=== PATIENT | male | born 1970 | race Caucasian/White ===

== ENCOUNTER 2022-01-18 15:41 | Inpatient (IN) | payer BC ==
[2022-01-18 17:15] VITALS: BMI 21.1
[2022-01-18] MEDS ORDERED: NALOXONE HCL (KLOXXADO) 8 MG SPRAY NS PRN (20:51)
[2022-01-18] MEDS ORDERED: BENZOCAINE/MENTHOL (CHLORASEPTIC ) LOZENGE MM PRN (20:51)
[2022-01-18] MEDS ORDERED: DICYCLOMINE HCL 10 MG CAPSULE PO PRN (20:51)
[2022-01-18] MEDS ORDERED: LOPERAMIDE HCL 2 MG CAPSULE PO PRN (20:51)
[2022-01-18] MEDS ORDERED: hydrOXYzine PAMOATE 25 MG CAPSULE (FP) PO PRN (20:51)
[2022-01-18] MEDS ORDERED: NICOTINE 10 MG CARTRIDGE (INHALER) IH PRN (20:51)
[2022-01-18] MEDS ORDERED: MAGNESIUM HYDROX 2400MG/30ML ORAL SUSPENSION 30 ML CUP PO PRN (20:51)
[2022-01-18] MEDS ORDERED: MAGNESIUM CITRATE 300 ML BOTTLE PO PRN (20:51)
[2022-01-18] MEDS ORDERED: ACETAMINOPHEN 325 MG TABLET (FP) PO PRN ×2 (20:51)
[2022-01-18] MEDS ORDERED: MAG HYDROX/AL HYDROX/SIMETH 30 ML UNIT-DOSE CUP PO PRN (20:51)
[2022-01-18] MEDS ORDERED: METHOCARBAMOL 500 MG TABLET PO PRN (20:51)
[2022-01-18] MEDS ORDERED: ONDANSETRON *ODT* 4 MG TABLET SL PRN (20:51)
[2022-01-18] MEDS ORDERED: THIAMINE HCL 100 MG TABLET (FP) PO SCH (22:00)
[2022-01-18] MEDS ORDERED: MELATONIN 5 MG TABLETS PO SCH (22:00)
[2022-01-19] MEDS ORDERED: PRENATAL VITAMINS W/ FOLIC ACID TABLET (FP) PO SCH (10:00)
[2022-01-19] MEDS ORDERED: methaDONE HCL 40 MG DISPERSABLE TABLET PO ONE (10:15)
[2022-01-19 11:34] LABS: HEMATOCRIT 35.7 % (35.4-49); HEMOGLOBIN 11.5 GM/dL (11.7-16.9); MCH 26.7 pg (25.7-33.7); MCHC 32.1 g/dl (32.0-35.9); MEAN CELL VOLUME 82.9 fl (80-96); MEAN PLT VOLUME 8.8 fl (7.5-11.1); PLATELET COUNT 233 10^3/uL (134-434); RBC 4.31 M/mm3 (4.00-5.60); RDW 13.9 % (11.9-15.9); WHITE BLOOD COUNT 6.6 K/mm3 (4.0-10.0)
[2022-01-19 11:43] LABS: BLOOD UREA NITROGEN 14.7 mg/dL (7-18); CALCIUM 8.7 mg/dL (8.5-10.1)
[2022-01-19 11:46] LABS: CREATININE 1.1 mg/dL (0.55-1.3)
[2022-01-19 11:48] LABS: BILIRUBIN,TOTAL 0.3 mg/dL (0.2-1); TOT PROT 5.9 g/dl (6.4-8.2)
[2022-01-19 13:43] VITALS: BP 111/62; PULSE 58; RESP 17; TEMP 97.6
== END 2022-01-19 15:44 | disposition home or self-care (01) | DRG 773 ==
LOC: YASAS 15:41 → Y6N 21:02
PROVIDERS: ADMIT Allergy & Immunology; ATTEND Surgery
PROC: HZ2ZZZZ Detoxification Services for Substance Abuse Treatment (ICD-10-PCS; principal; 2022-01-18)
DX: F10.230 Alcohol dependence with withdrawal, uncomplicated (principal); F11.20 Opioid dependence, uncomplicated; F14.20 Cocaine dependence, uncomplicated; F12.20 Cannabis dependence, uncomplicated; F17.210 Nicotine dependence, cigarettes, uncomplicated; F19.282 Other psychoactive substance dependence with psychoactive substance-induced sleep disorder; F19.280 Other psychoactive substance dependence with psychoactive substance-induced anxiety disorder; F19.24 Other psychoactive substance dependence with psychoactive substance-induced mood disorder; F20.9 Schizophrenia, unspecified; F43.10 Post-traumatic stress disorder, unspecified; G62.9 Polyneuropathy, unspecified; J44.9 Chronic obstructive pulmonary disease, unspecified; Z99.89 Dependence on other enabling machines and devices; Z88.0 Allergy status to penicillin
CPT/HCPCS: 36415; 80053; 85027; 86780; C9803-CS; U0003; U0005

== ENCOUNTER 2023-08-20 13:37 | Inpatient (IN) | payer BC ==
[2023-08-20 14:09] VITALS: BMI 21.2
[2023-08-20] MEDS ORDERED: DOCUSATE SODIUM 100 MG CAPSULE (FP) PO PRN (15:44)
[2023-08-20] MEDS ORDERED: NALOXONE (NARCAN) HCL 4 MG/0.1 ML SPRAY NS PRN (15:44)
[2023-08-20] MEDS ORDERED: NALOXONE HCL 0.4 MG/ML VIAL IM PRN (15:44)
[2023-08-20] MEDS ORDERED: NICOTINE POLACRILEX 2 MG LOZENGE BC PRN (15:44)
[2023-08-20] MEDS ORDERED: BENZONATATE 200 MG CAPSULE PO PRN (15:44)
[2023-08-20] MEDS ORDERED: LOPERAMIDE HCL 2 MG CAPSULE PO PRN (15:44)
[2023-08-20] MEDS ORDERED: guaiFENesin 600 MG TABLET.ER (FP) PO PRN (15:44)
[2023-08-20] MEDS ORDERED: POLYETHYLENE GLYCOL (HEALTHYLAX) 3350 17 GM PACKET PO PRN (15:44)
[2023-08-20] MEDS ORDERED: TUBERCULIN PPD 5 TU/0.1ML VIAL ID ONE (19:01)
[2023-08-20] MEDS: TUBERCULIN PPD 5 TU/0.1ML SYRINGE (IN PATIENT USE ONLY) ID ONE (19:02)
[2023-08-20] MEDS: MELATONIN 5 MG TABLETS PO SCH (21:38)
[2023-08-20] MEDS: THIAMINE 100 MG TABLET PO SCH (21:38)
[2023-08-21] MEDS ORDERED: methaDONE HCL 10 MG TABLET PO SCH (09:30)
[2023-08-21] MEDS: methaDONE 40 MG, methaDONE 10 MG PO ONE (10:02)
[2023-08-21] MEDS: PRENATAL VITAMINS W/ FOLIC ACID TABLET (FP) PO SCH (10:02)
[2023-08-21] MEDS: BENZOCAINE/MENTHOL (CHLORASEPTIC ) LOZENGE MM PRN (10:04)
[2023-08-21 10:28] LABS: HEMOGLOBIN 12.6 GM/dL (11.7-16.9); MCH 26.6 pg (25.7-33.7); MCHC 33.3 g/dl (32.0-35.9); MEAN PLT VOLUME 9.2 fl (7.5-11.1); PLATELET COUNT 206 10^3/uL (134-434); RBC 4.75 M/mm3 (4.00-5.60); WHITE BLOOD COUNT 10.5 K/mm3 (4.0-10.0)
[2023-08-21 10:32] LABS: POTASSIUM 4.1 mmol/L (3.5-5.1)
[2023-08-21 10:42] LABS: ALBUMIN 3.2 g/dl (3.4-5.0); CALCIUM 8.5 mg/dL (8.5-10.1)
[2023-08-21 10:43] LABS: BLOOD UREA NITROGEN 15.1 mg/dL (7-18); CREATININE 1.1 mg/dL (0.55-1.3)
[2023-08-21 10:45] LABS: BILIRUBIN,TOTAL 0.4 mg/dL (0.2-1); TOT PROT 6.4 g/dl (6.4-8.2)
[2023-08-21 11:59] LABS: SYPHILIS W/ RPR CONF NON-REACTIVE (NONREACTIVE)
[2023-08-21] MEDS: PERMETHRIN (NIX CREAM SCALP RINSE) 59 ML 1% BOTTLE TP ONE (13:43)
[2023-08-21] MEDS: PERMETHRIN 5% TOPICAL CREAM 60 GM TUBE TP ONE (15:57)
[2023-08-21 18:16] LABS: PH,URINE 5.5 (5.0-8.0); URINE APPEARANCE CLEAR; URINE BILIRUBIN NEGATIVE (NEGATIVE); URINE COLOR YELLOW; URINE GLUCOSE (UA) NEGATIVE (NEGATIVE); URINE KETONE NEGATIVE (NEGATIVE); URINE LEUK ESTERASE NEGATIVE (NEGATIVE); URINE NITRITE NEGATIVE (NEGATIVE); URINE PROTEIN NEGATIVE (NEGATIVE); URINE UROBILINOGEN 0.2 mg/dL (0.2-1.0)
[2023-08-21] MEDS: hydrOXYzine PAMOATE 25 MG CAPSULE (FP) PO PRN (21:08)
[2023-08-22] MEDS: methaDONE 40 MG, methaDONE 10 MG PO SCH (06:06)
[2023-08-22] MEDS: ACETAMINOPHEN 325 MG TABLET (FP) PO PRN (12:01)
[2023-08-23] MEDS: traZODone HCL 50 MG TABLET (FP) PO SCH (21:43)
[2023-08-23] MEDS: OLANZapine 10 MG TABLET PO SCH (21:43)
[2023-08-25] MEDS: PERMETHRIN 5% TOPICAL CREAM 60 GM TUBE TP ONE (13:12)
[2023-08-25] MEDS: PERMETHRIN (NIX CREAM SCALP RINSE) 59 ML 1% BOTTLE TP ONE (13:12)
[2023-08-25] MEDS: BACLOFEN 10 MG TABLET (FP) PO SCH (14:06)
[2023-08-25] MEDS: GABAPENTIN 100 MG CAPSULE PO SCH (14:06)
[2023-08-25] MEDS: MAGNESIUM HYDROX 2400MG/30ML ORAL SUSPENSION 30 ML CUP PO PRN (17:06)
[2023-08-25] MEDS: MAG HYDROX/AL HYDROX/SIMETH 30 ML UNIT-DOSE CUP PO PRN (23:39)
[2023-08-26] MEDS: P-EPHED 60MG/TRIPROLIDI 2.5MG TABLET PO PRN (10:27)
[2023-08-26] MEDS: guaiFENesin 200 MG/10 ML 10 ML UNIT-DOSE CUPS PO PRN (23:25)
[2023-08-28] MEDS: PERMETHRIN (NIX CREAM SCALP RINSE) 59 ML 1% BOTTLE TP ONE (10:57)
[2023-08-28] MEDS: PERMETHRIN 5% TOPICAL CREAM 60 GM TUBE TP ONE (12:53)
[2023-08-31] MEDS: NICOTINE POLACRILEX 2 MG GUM BUC PRN (10:13)
[2023-09-01] MEDS: GABAPENTIN 100 MG CAPSULE PO SCH (13:48)
[2023-09-02] MEDS: BENZOCAINE 20 % GEL TUBE MM PRN (21:16)
[2023-09-05] MEDS ORDERED: AMMONIUM LACTATE 12% LOTION 225 GM BOTTLE TP PRN (09:59)
[2023-09-07] MEDS ORDERED: HYDROCORTISONE 0.5% TOPICAL OINTMENT TUBE TP PRN (19:55)
[2023-09-07] MEDS ORDERED: HYDROCORTISONE 0.5% TOPICAL CREAM 30 GM TUBE TP PRN (21:10)
[2023-09-08 06:47] VITALS: BP 128/83; PULSE 91; RESP 16; TEMP 97.1
== END 2023-09-08 11:51 | disposition home or self-care (01) | DRG 772 ==
LOC: YASAS 13:37 → Y5N 17:22
PROVIDERS: ADMIT Allergy & Immunology; ATTEND Psychiatry & Neurology Pain Medicine
PROC: HZ42ZZZ Group Counseling for Substance Abuse Treatment, Cognitive-Behavioral (ICD-10-PCS; principal; 2023-08-20)
DX: F14.20 Cocaine dependence, uncomplicated (principal); F11.20 Opioid dependence, uncomplicated; F12.20 Cannabis dependence, uncomplicated; F17.210 Nicotine dependence, cigarettes, uncomplicated; F20.3 Undifferentiated schizophrenia; F19.282 Other psychoactive substance dependence with psychoactive substance-induced sleep disorder; F43.10 Post-traumatic stress disorder, unspecified; F43.9 Reaction to severe stress, unspecified; F45.20 Hypochondriacal disorder, unspecified; G62.9 Polyneuropathy, unspecified; K12.0 Recurrent oral aphthae; B85.0 Pediculosis due to Pediculus humanus capitis; Z86.69 Personal history of other diseases of the nervous system and sense organs; Z62.810 Personal history of physical and sexual abuse in childhood; Z91.410 Personal history of adult physical and sexual abuse; Z63.0 Problems in relationship with spouse or partner; Z63.8 Other specified problems related to primary support group
CPT/HCPCS: 0241U-QW; 36415; 80053; 80305; 80307; 81003; 82962; 83036; 85027; 86780; 86803; 87811; 93005; 93010; J0475

== ENCOUNTER 2024-05-15 12:06 | Inpatient (IN) | payer BC ==
[2024-05-15 13:51] VITALS: BMI 21.4
[2024-05-15] MEDS ORDERED: guaiFENesin 600 MG TABLET.ER (FP) PO PRN (14:02)
[2024-05-15] MEDS ORDERED: LOPERAMIDE HCL 2 MG CAPSULE PO PRN (14:02)
[2024-05-15] MEDS ORDERED: BENZOCAINE/MENTHOL (CHLORASEPTIC ) LOZENGE MM PRN (14:02)
[2024-05-15] MEDS ORDERED: BENZONATATE 200 MG CAPSULE PO PRN (14:02)
[2024-05-15] MEDS ORDERED: POLYETHYLENE GLYCOL (HEALTHYLAX) 3350 17 GM PACKET PO PRN (14:02)
[2024-05-15] MEDS ORDERED: NALOXONE (NARCAN) HCL 4 MG/0.1 ML SPRAY NS PRN (14:02)
[2024-05-15] MEDS ORDERED: MAGNESIUM HYDROX 2400MG/30ML ORAL SUSPENSION 30 ML CUP PO PRN (14:02)
[2024-05-15] MEDS ORDERED: NICOTINE POLACRILEX 2 MG LOZENGE BC PRN (14:02)
[2024-05-15] MEDS: MELATONIN 5 MG TABLETS PO SCH (22:00)
[2024-05-15] MEDS: THIAMINE 100 MG TABLET PO SCH (22:00)
[2024-05-15] MEDS: ACETAMINOPHEN 325 MG TABLET (FP) PO PRN (22:00)
[2024-05-16] MEDS ORDERED: methaDONE HCL 10 MG TABLET PO SCH (08:45)
[2024-05-16] MEDS: methaDONE 40 MG, methaDONE 10 MG PO SCH (09:35)
[2024-05-16] MEDS: PRENATAL VITAMINS W/ FOLIC ACID TABLET (FP) PO SCH (10:01)
[2024-05-16 10:51] LABS: POTASSIUM 3.8 mmol/L (3.5-5.1)
[2024-05-16 10:54] LABS: HEMATOCRIT 37.3 % (35.4-49); HEMOGLOBIN 12.2 GM/dL (11.7-16.9); MCH 26.9 pg (25.7-33.7); MCHC 32.8 g/dl (32.0-35.9); MEAN CELL VOLUME 82.1 fl (80-96); MEAN PLT VOLUME 8.6 fl (7.5-11.1); PLATELET COUNT 231 10^3/uL (134-434); RBC 4.55 M/mm3 (4.00-5.60); RDW 13.3 % (11.9-15.9); WHITE BLOOD COUNT 4.8 K/mm3 (4.0-10.0)
[2024-05-16 11:18] LABS: CALCIUM 8.6 mg/dL (8.5-10.1)
[2024-05-16 11:19] LABS: BLOOD UREA NITROGEN 15.6 mg/dL (7-18)
[2024-05-16 11:22] LABS: CREATININE 1.1 mg/dL (0.55-1.3)
[2024-05-16 11:23] LABS: BILIRUBIN,TOTAL 0.4 mg/dL (0.2-1); TOT PROT 6.1 g/dl (6.4-8.2)
[2024-05-16] MEDS: GABAPENTIN 300 MG CAPSULE PO SCH (13:55)
[2024-05-16] MEDS: traZODone HCL 100 MG TABLET (FP) PO SCH (21:45)
[2024-05-16] MEDS: OLANZapine 5 MG TABLET PO SCH (21:45)
[2024-05-17] MEDS: MAG HYDROX/AL HYDROX/SIMETH 30 ML UNIT-DOSE CUP PO PRN (17:45)
[2024-05-18] MEDS: NICOTINE POLACRILEX 2 MG GUM BUC PRN (21:18)
[2024-05-19] MEDS ORDERED: HYDROCORTISONE 1% TOPICAL CREAM 30 GM TUBE TP PRN (14:15)
[2024-05-20] MEDS: OLANZapine 10 MG TABLET PO SCH (21:25)
[2024-05-21] MEDS: FERROUS SO4 325 MG TABLET (FP) PO SCH (10:44)
[2024-05-21] MEDS: SULFAMETHOXAZOLE/TRIMETHOPRIM 800MG/160MG D.S. TABLET PO SCH (12:01)
[2024-05-21] MEDS: KETOCONAZOLE 2 % SHAMPOO 120 ML BOTTLE TP SCH (12:23)
[2024-05-21] MEDS: P-EPHED 60MG/TRIPROLIDI 2.5MG TABLET PO PRN (17:14)
[2024-05-29 09:06] VITALS: RESP 18
[2024-05-30 10:24] VITALS: BP 119/90; PULSE 122; TEMP 97.1
== END 2024-05-30 17:40 | disposition home or self-care (01) | DRG 772 ==
LOC: YASAS 12:06 → Y3NR 14:50 → Y3W 05-16 19:03 → Y3NR 05-27 16:35
PROVIDERS: ADMIT Psychiatry & Neurology Pain Medicine; ATTEND Psychiatry & Neurology Pain Medicine
PROC: HZ42ZZZ Group Counseling for Substance Abuse Treatment, Cognitive-Behavioral (ICD-10-PCS; principal; 2024-05-15)
DX: F11.20 Opioid dependence, uncomplicated (principal); F14.20 Cocaine dependence, uncomplicated; F12.20 Cannabis dependence, uncomplicated; F17.210 Nicotine dependence, cigarettes, uncomplicated; F25.9 Schizoaffective disorder, unspecified; F19.282 Other psychoactive substance dependence with psychoactive substance-induced sleep disorder; F43.10 Post-traumatic stress disorder, unspecified; U07.1 COVID-19; G62.9 Polyneuropathy, unspecified; D50.9 Iron deficiency anemia, unspecified; J43.9 Emphysema, unspecified; J45.20 Mild intermittent asthma, uncomplicated; Z62.810 Personal history of physical and sexual abuse in childhood; Z63.8 Other specified problems related to primary support group; Z88.0 Allergy status to penicillin; Z88.6 Allergy status to analgesic agent
CPT/HCPCS: 0241U-QW; 36415; 80053; 80305; 82607; 82746; 83540; 85027; 86780; 87811; 93005; 93010